=== PATIENT | female | born 1975 | race Caucasian/White ===

== ENCOUNTER → 2018-09-16 | Outpatient (REF) | payer OTHER ==
[~2018-09-16] MED LIST: ALBU8.5H; KEFL500C17 PO; MECL12.575
== END ==
LOC: M SFHCLERA 17:36
PROVIDERS: ATTEND Physician Assistant
DX: J02.9 Acute pharyngitis, unspecified (principal)

== ENCOUNTER 2018-09-21 17:32 | Emergency (ER) | payer OTHER ==
[~2018-09-21] VITALS: Ht 167.6 cm; Wt 67.7 kg
[2018-09-21] MEDS ORDERED: ALBU8.5H (17:48)
[2018-09-21] MEDS ORDERED: MECL12.575 (17:48)
[2018-09-21] MEDS ORDERED: CEPHALEXIN 500 MG CAP PO ONE (21:15)
[2018-09-21] MEDS ORDERED: ADACEL/BOOSTRIX VACCINE (DIPHTH/PERTUSS/ACELL/TETANUS)0.5ML SYR (90715) IM ONE (21:15)
[2018-09-21] MEDS ORDERED: KEFL500C17 PO (21:18)
[2018-09-21 21:36] VITALS: BP 138/84
--- NOTE | 2018-09-22 08:02 | REP ---
Right long finger series: Four views. History: Trauma. Findings: Four views of the long finger demonstrate soft tissue swelling at the PIP joint. There is soft tissue swelling of the distal tuft. A crush type nondisplaced distal tuft fracture is seen. There is irregularity of the soft tissues suggesting an open injury. No opaque foreign body is seen. Impression: Findings consistent with an open crush type fracture of the distal tuft of the distal phalanx. Nondisplaced. Electronically Signed by Goldy Cummings MD 09/22/2018 07:54 A
== END 2018-09-21 21:37 | disposition home or self-care (01) ==
LOC: M ED 17:32
DX: S62.662B Nondisplaced fracture of distal phalanx of right middle finger, initial encounter for open fracture (principal); W23.0XXA Caught, crushed, jammed, or pinched between moving objects, initial encounter; Y92.89 Other specified places as the place of occurrence of the external cause; F17.210 Nicotine dependence, cigarettes, uncomplicated; Z88.1 Allergy status to other antibiotic agents; Z91.013 Allergy to seafood; Z79.899 Other long term (current) drug therapy